=== PATIENT | female | born 1980 | race Caucasian/White ===

== ENCOUNTER 2024-06-17 04:14 | Emergency (ER) | payer MEDICAID ==
[~2024-06-17] VITALS: Ht 175.3 cm; Wt 63.0 kg
[~2024-06-17 04:14] MED LIST: ONDA4TAB9 PO
[2024-06-17 04:27] VITALS: TEMP 98.4
[2024-06-17] MEDS: normal saline 1000ML IV soln IVB ONE (04:36)
[2024-06-17] MEDS: ketorolac trometh 15mg/ml vial 15 MG/ML ML IV ONE (04:36)
[2024-06-17] MEDS: HYDROmorphone 1 mg/ml syringe IV ONE (05:13)
[2024-06-17] MEDS ORDERED: METH-603 PO (05:17)
[2024-06-17 06:07] LABS: BASOPHILS % (AUTO) 0.7 % (0-1); EOSINOPHILS # (AUTO) 0.2 X10'3 (0-0.9); EOSINOPHILS % (AUTO) 3.7 % (0-6); HEMOGLOBIN 10.3 g/dl (12.0-16.0); LYMPHOCYTES % (AUTO) 32.7 % (21-51); MEAN CORPUSCULAR HEMOGLOBIN 23.5 PG (27.0-31.0); MEAN CORPUSCULAR HGB CONC 31.3 g/dL (33.0-36.5); MEAN CORPUSCULAR VOLUME 75.1 FL (78-98); MEAN PLATELET VOLUME 7.3 FL (7.4-10.4); MONOCYTES # (AUTO) 0.8 X10'3 (0-0.9); MONOCYTES % (AUTO) 13.4 % (2-12); NEUTROPHILS # (AUTO) 3.1 X10'3 (1.8-7.7); NEUTROPHILS % (AUTO) 49.5 % (42-75); PLATELET COUNT 392 X10'3 (140-440); RED CELL DISTRIBUTION WIDTH 16.5 % (11.5-14.5); WHITE BLOOD COUNT 6.2 X10'3 (4.5-11.0)
[2024-06-17] MEDS ORDERED: OLANZapine **IM** 10 mg inj. IM ONE (06:15)
[2024-06-17 06:22] LABS: ALANINE AMINOTRANSFERASE 229 U/L (12-78); ALBUMIN 2.9 G/DL (3.4-5.0); ALBUMIN/GLOBULIN RATIO 0.6 (1.1-1.5); ALKALINE PHOSPHATASE 104 IU/L (46-116); ANION GAP 6 (8-16); ASPARTATE AMINO TRANSFERASE 82 U/L (10-37); BILIRUBIN,TOTAL 0.2 MG/DL (0.1-1.0); BLOOD UREA NITROGEN 12 MG/DL (7-18); BUN/CREATININE RATIO 19.4 (10.0-20.0); CALCIUM 8.5 MG/DL (8.5-10.1); CHLORIDE 104 MMOL/L (99-107); CREATININE 0.62 MG/DL (0.40-0.90); GLUCOSE 74 MG/DL (70-104); LIPASE 18 U/L (16-77); SODIUM 136 MMOL/L (135-145); TOTAL CARBON DIOXIDE 26.4 MMOL/L (24-32); TOTAL PROTEIN 7.5 G/DL (6.4-8.2); eCRCL 113 ML/MIN; eGFR > 90 ML/MIN
[2024-06-17 06:48] LABS: BILIRUBIN,URINE NEGATIVE (Neg); CLARITY,URINE CLEAR (Clear); COLOR,URINE STRAW (Yellow); GLUCOSE, URINE NEGATIVE (Neg); KETONES,URINE NEGATIVE (Neg); LEUKOCYTE ESTERASE ,URINE NEGATIVE (Neg); NITRITES, URINE NEGATIVE (Neg); OCCULT BLOOD,URINE NEGATIVE (Neg); PH,URINE 7.5 (4.8-8.0); PROTEIN,URINE NEGATIVE (Neg); UROBILINOGEN,URINE 0.2 E.U/dL (0.2-1.0)
[2024-06-17 06:54] LABS: UA COLLECTION TYPE NON-SPECIFIED; URINE HCG NEGATIVE (NEG)
[2024-06-17] MEDS ORDERED: PRED20TA PO (07:37)
[2024-06-17] MEDS: dexamethasone 4mg/ml inj IM ONE (07:45)
[2024-06-17 08:32] VITALS: BP 118/81; PULSE 92; RESP 14; O2SAT 96
== END 2024-06-17 08:15 | disposition home or self-care (01) ==
LOC: ER 04:14
DX: R59.1 Generalized enlarged lymph nodes (principal); F12.90 Cannabis use, unspecified, uncomplicated; F15.90 Other stimulant use, unspecified, uncomplicated; F19.90 Other psychoactive substance use, unspecified, uncomplicated; F17.210 Nicotine dependence, cigarettes, uncomplicated; Z56.0 Unemployment, unspecified; Z72.89 Other problems related to lifestyle; Z98.51 Tubal ligation status
CPT/HCPCS: 36415; 74176; 80053; 81003; 81025; 83605; 83690; 84145; 85025; 96361; 96372; 96374; 96375; 99285; J1100; J1171; J1885; J7030